=== PATIENT | female | born 2000 | race Two or more races ===

== ENCOUNTER 2022-06-06 02:30 | Emergency (ER) | payer MEDICAID ==
[~2022-06-06] VITALS: Ht 157.5 cm; Wt 54.5 kg
[2022-06-06 02:50] VITALS: BP 118/80
[2022-06-06 03:26] LABS: Urine Bacteria NONE SEEN /hpf (None Seen); Urine Blood 3+ /uL (Negative); Urine Mucus FEW (None Seen); Urine Specific Gravity 1.014 (1.001-1.035); Urine WBC 4 /hpf (0 - 5)
== END 2022-06-06 05:15 | disposition home or self-care (01) ==
LOC: ER 02:30
DX: O20.8 Other hemorrhage in early pregnancy (principal); Z3A.00 Weeks of gestation of pregnancy not specified
CPT/HCPCS: 81001